=== PATIENT | female | born 1955 | race American Indian/Alaskan Native ===

== ENCOUNTER 2020-02-29 10:56 | Outpatient (CLI) | payer MEDICARE ==
--- NOTE | 2020-02-29 16:06 | Magnetic Resonance Report ---
BILATERAL BREAST MR WITHOUT AND WITH GADOLINIUM INDICATION: Newly diagnosed right breast cancer. She had a right subareolar needle core biopsy perfo rmed at 12:[address] Whitley on 01/12/2020. 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 COMPARISONS: YENNI 12/01/2019 bilateral screening mammogram and 12/26/2019 right diagnostic mammogram a nd right breast ultrasound TECHNIQUE: Axial 1.0 mm T1 without, axial high-resolution 2.0 mm T2 and axial 1.0 mm dynamic vibrant high-resolution postcontrast T1 fat saturation sequences on a 1.5 Winnie magnet. The examination was p erformed with an 8-channel dedicated [place]in[place] breast coil. Post-processing with CAD and subtraction was performed on an Augur workstation. 15.0 cc of MultiHance was injected without incident for the c ontrast portion of the exam. Consent was obtained prior to the administration of the contrast. This p atient also has cochlear implants and an aneurysm clip. The technologist investigated both of these p rior to the scan and were deemed MRI safe. FINDINGS: RIGHT BREAST: Mild background parenchymal enhancement. The known cancer is an irregular enhancing ret roareolar mass above the nipple measuring 13.8 x 11.1 x 7.1 mm. It demonstrates heterogeneous enhance ment with mixed kinetics and 1% type III washout. It contains a biopsy clip. A second irregular spicu lated enhancing mass is identified in the lower inner quadrant centered 4.2 cm from the nipple. It me asures 2.0 x 0.8 x 0.6 cm and correlates with a mammographic mass. This lesion demonstrates heterogen eous enhancement with a predominant type I persistent waveform of 96% and a type II plateau waveforms 4% and no type III washout. No additional suspicious lesion of the right breast. No suspicious right axillary or right internal mammary lymph nodes. LEFT BREAST: Mild background parenchymal enhancement. A lower inner quadrant mass versus lymph node a pproximately 3 cm from the nipple measures 5.5 x 5.0 x 2.7 mm. It demonstrates heterogeneous enhancem ent with mixed kinetics and 14% type III washout. No central fat is identified on T2. No suspicious l eft axillary or left internal mammary lymph nodes. IMPRESSION: 1. Known 13.8 mm right retroareolar breast cancer. 2. A second highly suspicious 2 cm right breast mass which appears to correlate with the mammographic density. Recommend right breast ultrasound for further evaluation. 3. A 5.5 mm left lower inner lymph node versus mass. Recommend left breast ultrasound for further poornmia luation. BI-RADS Category 0: Needs Additional Imaging A normal MRI does not exclude the presence of some forms of breast malignancy as literature reports s uggest that some forms of ductal carcinoma in situ or lobular carcinoma, particularly, may not be det ected on MRI. The sensitivity and specificity of MRI for cancers under 5 mm may be reduced. MRI does not replace the recommendation for annual conventional mammographic evaluation and should be used as an adjunct to mammography and physical examination as necessary. Signer Name: Mark Cai MD Signed: 02/29/2020 4:01 PM Workstation Name: [id number]
== END 2020-02-29 10:57 | disposition home or self-care (01) ==
LOC: SPVIMAG 10:56
PROVIDERS: ATTEND Surgery
DX: C50.911 Malignant neoplasm of unspecified site of right female breast (principal)
CPT/HCPCS: A9577; C8908; 77049

== ENCOUNTER 2020-04-04 08:55 | Outpatient (CLI) | payer MEDICARE ==
--- NOTE | 2020-04-04 12:04 | Mammography Report ---
DIGITAL DIAGNOSTIC MAMMOGRAM WITH CAD, 04/04/2020 INDICATION: POST CLIP RT. Newly diagnosed right breast cancer. She recently had a right ultrasound b iopsy performed by Dr. Whitley. Today she had biopsy of a second lesion which was identified by MRI. TECHNIQUE: Digital right mammographic imaging was performed. This examination was interpreted with the benefit of Computer-aided Detection analysis. COMPARISON: 12/01/2019 outside mammogram. FINDINGS: Breast Density: The breast is heterogeneously dense, which may obscure small masses. A U-shaped biopsy clip correlates with today's biopsy. It is noted that there is no localizer clip at the site of the known cancer. IMPRESSION: Concordant clip deployment after ultrasound biopsy. Follow up recommendation: No recall. Post biopsy imaging. A "normal" or negative report should not discourage follow up or biopsy of a clinically significant f inding. A written summary of these findings will be mailed to the patient. The patient will be entered into a mammography reporting system which will generate a reminder letter for the patient's next appointmen t at the appropriate interval. According to the [employer], yearly mammograms are recommended starting at age 40 and continuing as long as a woman is in good health. Breast MRI is recommended for women with an sunny roximately 20-25% or greater lifetime risk of breast cancer, including women with a strong family his tory of breast or ovarian cancer and women who have been treated for Hodgkin's disease. Signer Name: Mark Cai MD Signed: 04/04/2020 11:59 AM Workstation Name: [id number]
--- NOTE | 2020-04-04 12:12 | Ultrasound Report ---
ULTRASOUND-GUIDED NEEDLE CORE BIOPSY RIGHT BREAST WITH CLIP PLACEMENT CLINICAL: Mass at 3:30 o'clock 2 cm from the nipple. FINDINGS: The procedure was explained to the patient and informed consent was obtained. Ultrasound demonstrated the previously identified mass.. I marked the breast with a felt tip marker and a timeout was called. The skin was prepped with Chloro -Prep and anesthetized with 1% lidocaine. Needle core biopsy was performed through small dermatotomy using ultrasound guidance, 2% lidocaine wi th epinephrine for deep anesthesia and a 14-gauge Achieve biopsy device. 3 cores were obtained and pl aced in formalin. A clip was deployed within the lesion. The patient tolerated the procedure well and there were no apparent complications. Hemostasis was ach ieved with minimal effort and a sterile dressing was applied. A post procedure mammogram demonstrated concordant clip deployment. She left the department in good c ondition and was given instructions for wound care and follow-up. IMPRESSION: Uncomplicated ultrasound guided needle core biopsy with clip placement right breast. Signer Name: Mark Cai MD Signed: 04/04/2020 12:07 PM Workstation Name: [id number]
--- NOTE | 2020-04-04 12:36 | Ultrasound Report ---
LIMITED BILATERAL BREAST ULTRASOUND HISTORY: Known right breast cancer and additional bilateral lesions identified by MRI. COMPARISON: 02/29/2020 MRI FINDINGS: Focused sonographic evaluation upon the lower inner location of the right breast demonstrat es an irregular shadowing solid hypoechoic mass at 3:30 o'clock 2 cm from the nipple measuring 1.1 x 1.2 x 0.6 cm. It correlates with the second lesion identified by MRI. Focused sonographic evaluation upon the inner location of the left breast demonstrates no distinct ab normality. No mass or cyst to correlate with the lesion identified by MRI. Impression: 1. A suspicious 1.2 cm right breast mass at 3:30 o'clock 2 cm from the nipple. Recommend ultrasound-g uided needle biopsy. 2. Negative left breast. In view of these findings, I would consider the left breast lesion to be a p robable benign intramammary lymph node. BIRADS 5: Highly suggestive of malignancy Signer Name: Mark Cai MD Signed: 04/04/2020 12:31 PM Workstation Name: [id number]
== END 2020-04-04 08:56 | disposition home or self-care (01) ==
LOC: SPVWC 08:55
PROVIDERS: ATTEND Surgery
DX: N63.14 Unspecified lump in the right breast, lower inner quadrant (principal); C50.411 Malignant neoplasm of upper-outer quadrant of right female breast; I10 Essential (primary) hypertension; Z88.0 Allergy status to penicillin; Z79.899 Other long term (current) drug therapy
CPT/HCPCS: 88305; 88341; 88342